=== PATIENT | female | born 1965 | race Caucasian/White ===

== ENCOUNTER → 2017-12-20 08:45 | Outpatient (CLI) | payer OTHER, SELFPAY ==
--- NOTE | 2017-12-20 09:00 | EKG12_ITS ---
Test Reason : PREOP Blood Pressure : / mmHG Vent. Rate : 051 BPM Atrial Rate : 051 BPM P-R Int : 134 ms QRS Dur : 084 ms QT Int : 446 ms P-R-T Axes : 053 041 021 degrees QTc Int : 411 ms Sinus bradycardia Possible Left atrial enlargement Borderline ECG Confirmed by DRAGNA KLINE, SIM ([id number]), metropolitan editor BRANDY LANDRY ([id number] on 12/22/2017 1:59:45 PM Referred By: Prince Arredondo Confirmed By:SIM ARCHIBALD MD
[2017-12-20 09:38] LABS: Anion Gap 5 (5-15); BUN 14 mg/dL (7-18); BUN/Creat Ratio 21.1 RATIO (10-20); Calcium,Total 9.2 mg/dL (8.5-10.1); Chloride 108 mmol/L (98-107); Creatinine, Serum 0.66 mg/dL (0.55-1.02); EST Glomerular Filtration Rate 99 mL/min (>60); Est Glom Filt Rate - Afr Amer 120 mL/min (>60); Glucose 86 mg/dL (74-106); Potassium 3.8 mmol/L (3.5-5.1); Sodium Level 143 mmol/L (136-145)
== END ==
LOC: LAB.FUTURE 08:49
PROVIDERS: Family Provider Family Medicine; PCP Family Medicine; Visit Provider Surgery
DX: Z01.810 Encounter for preprocedural cardiovascular examination (principal); I87.2 Venous insufficiency (chronic) (peripheral); M79.661 Pain in right lower leg; M79.89 Other specified soft tissue disorders; I83.11 Varicose veins of right lower extremity with inflammation
CPT/HCPCS: 36415; 80048; 93005

== ENCOUNTER → 2017-12-23 09:45 | Outpatient (CLI) | payer OTHER, SELFPAY ==
[2017-12-23 10:17] LABS: Hematocrit 37.2 % (37-47); Hemoglobin 12.4 g/dl (12.0-15.0); Mean Corp Hgb Conc 33.3 g/gl (32-36); Mean Corpuscular Hgb 28.7 pg (27.0-32.0); Mean Corpuscular Volume 86.1 fL (81-99); Mean Platelet Vol. 11.3 fl (6.2-12.0); Platelet Count 214 K/mm3 (150-450); RBC Distribution Width CV 12.9 % (11.6-14.6); RBC Distribution Width SD 40.8 fl (35.1-43.9); Red Blood Count 4.32 M/mm3 (4.2-5.4); White Blood Count 5.5 K/mm3 (4.4-11.0)
[2017-12-23 10:18] LABS: Scan Indicated on CBC? Y/N NO
== END ==
PROVIDERS: Family Provider Family Medicine; PCP Family Medicine; Visit Provider Surgery
DX: Z01.812 Encounter for preprocedural laboratory examination (principal); I83.11 Varicose veins of right lower extremity with inflammation; M79.89 Other specified soft tissue disorders; I87.2 Venous insufficiency (chronic) (peripheral); M79.661 Pain in right lower leg
CPT/HCPCS: 85027

== ENCOUNTER 2018-02-09 17:28 | Emergency (ER) | payer OTHER, SELFPAY ==
[2018-02-09 17:30] VITALS: BP 126/66; PULSE 88; RESP 17; TEMP 37.2; O2SAT 95; BMI 29.9
--- NOTE | 2018-02-09 17:48 | US_ITS ---
STUDY: VENOUS DOPPLER ULTRASOUND - RIGHT LOWER EXTREMITY REASON FOR EXAM: Female, 52 years old. Pain and swelling TECHNIQUE: Ultrasound evaluation of the deep vein system to include mayo-scale imaging and compression was performed. Mayo-scale imaging and Doppler sonographic evaluation, including duplex spectral analysis and qualitative color flow sonography, was performed. COMPARISON: None. FINDINGS: Common Femoral Vein: Normal compression, spontaneity and augmentation. Normal color Doppler. Femoral Proximal: Normal compression, spontaneity and augmentation. Normal color Doppler. Femoral Middle: Normal compression, spontaneity and augmentation. Normal color Doppler. Femoral Distal: Normal compression, spontaneity and augmentation. Normal color Doppler. Popliteal Vein: Normal compression, spontaneity and augmentation. Normal color Doppler. Posterior Tibial Vein: Normal compression, spontaneity and augmentation. Normal color Doppler. Peroneal Vein: Normal compression, spontaneity and augmentation. Normal color Doppler. There is superficial thrombus noted in the right greater saphenous vein and lesser saphenous vein. The thrombus in the greater saphenous vein is approximately 1.8 cm from its junction with the common femoral vein. US/Venous Duplex Imag/Limited/Uni IMPRESSION: Superficial thrombus noted in the right greater saphenous vein and lesser saphenous vein. The thrombus in the greater saphenous vein is approximately 1.8 cm from its junction with the common femoral vein. If this enlarges, it could could propagate into the common femoral vein. No deep venous thrombosis at this time. Electronically Signed: Elier Daley, at 19:06 EDT Tel , Service support ,
[2018-02-09 19:06] VITALS: BP 135/85; PULSE 67; RESP 18; O2SAT 97
--- NOTE | 2018-02-09 19:22 | ED.VISSUMM ---
- ER Visit Summary Date of Service: 02/09/18 Chief Complaint: [Pain and swelling right leg] History of Present Illness: The patient is a 52 F presents to the emergency department with pain and swelling in the right leg for the last 10 days off and on. Patient states that she has noticed that her right leg swells more when she standing. Patient was concerned about possibility of a DVT in her leg. Patient states that she had some sort of a vascular procedure done on her right leg on December [address] Arredondo. Patient denies any chest pain or shortness of breath. Patient did travel to [place] in January for work. She denies any hormone replacement. No history of DVT. Physical Examination: [HEENT-PERRLA, EOMI. Cranial nerves II through XII grossly intact. TMs clear. Mucous membranes moist. No adenopathy. Cardiovascular-regular rate and rhythm without murmur or ectopy Lungs-clear to auscultation, chest wall stable without crepitus or subcu emphysema Abdomen-normoactive bowel sounds, soft, nontender, no rebound or rigidity, no peritoneal signs. Extremities-intact ?4, normal range of motion, normal pulses, atraumatic]. Right leg-patient has some mild tenderness over the medial aspect of the right calf and some tenderness over the medial aspect of the distal right thigh. No ropes or cords palpated. Negative Homans sign. Neurovascularly intact. No significant swelling noted. Test Results: [Venous Doppler of the right lower extremity obtained showed superficial phlebitis of the greater saphenous and lesser saphenous veins.] Emergency Department Course and Treatment: [I attempted to contact Dr. Arredondo unsuccessfully to discuss case with him.] Treatment Plan: [At this point being that this is a superficial thrombophlebitis I will start patient on ibuprofen and instructed to use warm compresses to the area. I will have the patient repeat a venous Doppler in 1 week. Patient will be advised to follow-up with Dr. Prince Arredondo within next 3-5 days.] Disposition: [Discharged to home in stable condition]. Patient advised to return if chest pain, shortness of breath, increased leg swelling or pain, or condition should worsen in any way. Impression: [Superficial thrombophlebitis right leg] This note was generated with [employer] software. It may contain incorrect words, spelling, and punctuation that were not noted in review of the chart prior to signing ED Disposition - Plan for ED Patient: Chief Complaint: Lower Extremity Injury Referrals: Abraham Hicks MD [Primary Care Provider] -
--- NOTE | 2018-02-09 19:26 | ED.DCSUM_ITS ---
- ER Visit Summary Date of Service: 02/09/18 Chief Complaint: [Pain and swelling right leg] History of Present Illness: The patient is a 52 F presents to the emergency department with pain and swelling in the right leg for the last 10 days off and on. Patient states that she has noticed that her right leg swells more when she standing. Patient was concerned about possibility of a DVT in her leg. Patient states that she had some sort of a vascular procedure done on her right leg on December [address] Arredondo. Patient denies any chest pain or shortness of breath. Patient did travel to [place] in January for work. She denies any hormone replacement. No history of DVT. Physical Examination: [HEENT-PERRLA, EOMI. Cranial nerves II through XII grossly intact. TMs clear. Mucous membranes moist. No adenopathy. Cardiovascular-regular rate and rhythm without murmur or ectopy Lungs-clear to auscultation, chest wall stable without crepitus or subcu emphysema Abdomen-normoactive bowel sounds, soft, nontender, no rebound or rigidity, no peritoneal signs. Extremities-intact ?4, normal range of motion, normal pulses, atraumatic]. Right leg-patient has some mild tenderness over the medial aspect of the right calf and some tenderness over the medial aspect of the distal right thigh. No ropes or cords palpated. Negative Homans sign. Neurovascularly intact. No significant swelling noted. Test Results: [Venous Doppler of the right lower extremity obtained showed superficial phlebitis of the greater saphenous and lesser saphenous veins.] Emergency Department Course and Treatment: [I attempted to contact Dr. Arredondo unsuccessfully to discuss case with him.] Treatment Plan: [At this point being that this is a superficial thrombophlebitis I will start patient on ibuprofen and instructed to use warm compresses to the area. I will have the patient repeat a venous Doppler in 1 week. Patient will be advised to follow-up with Dr. Prince Arredondo within next 3- 5 days.] Disposition: [Discharged to home in stable condition]. Patient advised to return if chest pain, shortness of breath, increased leg swelling or pain, or condition should worsen in any way. Impression: [Superficial thrombophlebitis right leg] This note was generated with [employer] software. It may contain incorrect words, spelling, and punctuation that were not noted in review of the chart prior to signing ED Disposition - Plan for ED Patient: Chief Complaint: Lower Extremity Injury Referrals: Abraham Hicks MD [Primary Care Provider] -
--- NOTE | 2018-02-09 19:26 | ED.DEP ---
ED Disposition - Plan for ED Patient: Chief Complaint: Lower Extremity Injury Instructions: ED Phlebitis Superficial Referrals: Prince Arredondo MD [STAFF PHYSICIAN] - 3-5 Days
[2018-02-09 19:35] VITALS: RESP 18
== END 2018-02-09 19:32 | disposition home or self-care (01) ==
LOC: ED 18:09
PROVIDERS: Emergency Provider Emergency Medicine; Family Provider Family Medicine; PCP Family Medicine
DX: I80.01 Phlebitis and thrombophlebitis of superficial vessels of right lower extremity (principal); I10 Essential (primary) hypertension; Z79.899 Other long term (current) drug therapy
CPT/HCPCS: 93971; 99282

== ENCOUNTER → 2018-02-15 08:52 | Outpatient (CLI) | payer OTHER, SELFPAY ==
--- NOTE | 2018-02-15 08:56 | VDLE_ITS ---
Reason For Study: swelling RIGHT LEFT CFV is compressible, spontaneous, phasic, CFV is compressible, spontaneous, phasic, competent and demonstrates normal competent, and demonstrates normal augmentation. augmentation. FV is compressible, spontaneous, phasic, competent and demonstrates normal augmentation. POP V is compressible, spontaneous, phasic, competent and demonstrates normal augmentation. T/P Trunk is compressible. PTV is compressible. RT PerV is compressible. GSV and SSV are occluded S/P EVLA. GSV occluded 1.99 cm from the S-F Junction. SSV is occluded up to the Gastroc V but not extending into the deep veins. Procedure Exam performed in department. The exam was diagnostic. Interpretation Summary Deep veins of the right lower extremity are patent and compressible segmentally. There is no evidence of right lower extremity deep vein thrombosis. Valvular competence appears intact within the proximal deep venous system on the right . The right great saphenous vein and small saphenous vein are occluded, consistent with a prior endothermal ablation procedure. Ordering Physician: Prince Arredondo Performed By: Marcos Rushing RVT
== END ==
PROVIDERS: Family Provider Family Medicine; PCP Family Medicine; Visit Provider Surgery
DX: M79.89 Other specified soft tissue disorders (principal); I80.9 Phlebitis and thrombophlebitis of unspecified site; I87.2 Venous insufficiency (chronic) (peripheral); I83.10 Varicose veins of unspecified lower extremity with inflammation
CPT/HCPCS: 93971